=== PATIENT | female | born 1990 | race African-American/Black ===

== ENCOUNTER 2020-12-05 13:08 | Emergency (ER) | payer MEDICAID ==
[~2020-12-05] VITALS: Ht 167.6 cm; Wt 82.0 kg
[2020-12-05] MEDS ORDERED: SODIUM CHLORIDE 0.9% 1,000 ML IV ONE (13:30)
[2020-12-05 13:57] LABS: BASOPHILS % 0.3 % (0.0-2.0); EOSINOPHILS % 1.1 % (0.0-5.0); HEMATOCRIT. 22.5 % (36.0-48.0); HEMOGLOBIN. 7.4 g/dL (12.0-16.0); LYMPHOCYTES % 24.3 % (20.0-50.0); MEAN CORPUSCULAR HEMOGLOBIN 25.2 pg (28.0-32.0); MEAN CORPUSCULAR VOLUME 76.6 fL (81.0-99.0); MONOCYTES % 8.7 % (2.0-8.0); NEUTROPHILS % 65.6 % (40.0-76.0); PLATELET 168 x1000/uL (130-400); RED BLOOD CELL COUNT 2.94 mill/uL (4.2-5.4); RED CELL DISTRIBUTION WIDTH 17.6 % (11.6-14.6)
[2020-12-05 14:07] LABS: CHLORIDE 107 mEq/L (98-107)
[2020-12-05 14:15] LABS: HCG SCREEN POSITIVE
[2020-12-05 14:32] LABS: B-HCG QUANTITATIVE 21076 mIU/mL (<3)
[2020-12-05] MEDS ORDERED: POTASSIUM CHLORIDE 20MEQ TABLET SR PO NR (15:30)
[2020-12-05 16:29] VITALS: BP 126/69
== END 2020-12-05 16:59 | disposition short-term general hospital (02) ==
LOC: ER 13:08 → CANBEDREQ 15:45 → ER 16:59
DX: O99.011 Anemia complicating pregnancy, first trimester (principal); D64.9 Anemia, unspecified; Z3A.09 9 weeks gestation of pregnancy
CPT/HCPCS: 36415; 76830; 76856; 80053; 81025; 84702; 84703; 85025; 86850; 86900; 86901; 93005; 99285; J7030